=== PATIENT | female | born 1990 | race Two or more races ===

== ENCOUNTER → 2022-12-17 | Outpatient (REF) | payer OTHER ==
[~2022-12-17] MED LIST: COLA100C5 PO; MAPA500T2 PO; MOTR200T44 PO; PREN27TA3 PO
== END ==
LOC: M SFHCWAGY 17:05
PROVIDERS: ATTEND Advanced Practice Midwife
DX: Z34.93 Encounter for supervision of normal pregnancy, unspecified, third trimester (principal)